=== PATIENT | male | born 1995 | race Caucasian/White ===

== ENCOUNTER 2016-10-06 12:29 | Emergency (ER) | payer OTHER ==
[~2016-10-06] VITALS: Ht 180.3 cm; Wt 104.3 kg
[2016-10-06] MEDS ORDERED: IV NORMAL SALINE 1,000ML 1,000 ML IV SCH (12:44)
--- NOTE | 2016-10-06 13:13 | EKG ---
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
[2016-10-06] MEDS ORDERED: ONDANSETRON PF 4 MG/2 ML VIAL. IV ONE (13:15)
[2016-10-06 13:23] LABS: BASO # 0.1 x10^3/uL (0.0-0.2); BASO % 1 % (0-3); EOS # 0.1 x10^3/uL (0.0-0.7); EOS % 1 % (0-3); HEMATOCRIT 40.4 % (39.0-53.0); HEMOGLOBIN 13.5 g/dL (13.0-17.5); LYMPH # 1.3 x10^3/uL (1.0-4.8); LYMPH % 11 % (24-48); MEAN CORPUSCULAR HEMOGLOBIN 29 pg (25-35); MEAN CORPUSCULAR HGB CONC 33 g/dL (31-37); MEAN CORPUSCULAR VOLUME 88 fL (79-100); MONO # 0.9 x10^3/uL (0.0-1.1); MONO % 7 % (0-9); NEUT # 9.5 x10^3uL (1.8-7.7); NEUT % 81 % (31-73); PLATELET COUNT 169 x10^3/uL (140-400); RED BLOOD COUNT 4.61 x10^6/uL (4.30-5.70); RED CELL DISTRIBUTION WIDTH 12.6 % (11.5-14.5); WHITE BLOOD COUNT 11.8 x10^3/uL (4.0-11.0)
--- NOTE | 2016-10-06 13:26 | RAD ---
Portable chest, 10/06/2016: History: Syncope The heart size and pulmonary vascularity are normal. No pulmonary infiltrates are seen. There is no evidence of pleural fluid. IMPRESSION: No acute cardiopulmonary abnormality is detected.
[2016-10-06 13:34] LABS: ALBUMIN 4.4 g/dL (3.4-5.0); ALBUMIN/GLOBULIN RATIO 1.4 (1.0-1.7); CREATININE 1.2 mg/dL (0.7-1.3); GFR 77.2; POTASSIUM 3.8 mmol/L (3.5-5.1); TOTAL BILIRUBIN 0.5 mg/dL (0.2-1.0); TOTAL PROTEIN 7.5 g/dL (6.4-8.2)
[2016-10-06] MEDS ORDERED: IV NORMAL SALINE 1,000ML 1,000 ML IV ONE (14:00)
[2016-10-06] MEDS ORDERED: METOCLOPRAMIDE HCL 10 MG/2 ML VIAL. IV ONE (14:00)
--- NOTE | 2016-10-06 14:04 | PHYS DOC ---
General Chief Complaint: WEAKNESS/GENERALIZED Stated Complaint: WEAKNESS Time Seen by MD: 12:37 Source: patient Exam Limitations: no limitations Problems: History of Present Illness Initial Comments Pt is 21/M to ED via EMS for weakness. 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 Pt states he's had "flu symptoms" of n/v/d x past 24 hours. States he kept some tacos down last night, not feeling well at beginning of run. States that in middle of run had BM urge, had to stop run and go into [facility] for BM. Continued the run, another BM urge right before finishing the run. States he went back home and "collapsed" on the bed, his SO called 911. No mon/loc/cp/sob/focal weakness. No blood in emesis/stool. Timing/Duration: 24 hours Severity: severe Modifying Factors: worse with movement, improves with rest Associated Symptoms: diaphoresis, fever/chills, loss of appetite, malaise, nausea/vomiting, weakness Allergies: Coded Allergies: No Known Drug Allergies (Unverified , 09/11/16) Past Medical History Medical History: no pertinent history Surgical History: noncontributory Social History Smoker: non-smoker Alcohol: none Drugs: none Review of Systems Constitutional: chills diaphoresis fever malaise Respiratory: denies cough, denies shortness of breath, denies wheezing Cardiovascular: denies chest pain, denies palpitations, denies syncope Gastrointestinal: abdominal pain diarrhea nausea vomiting Genitourinary: denies dysuria, denies frequency, denies hematuria Musculoskeletal: denies back pain, denies joint swelling, denies neck pain Psychiatric/Neurological: denies headache, denies numbness, denies paresthesia , denies weakness Hematologic/Lymphatic: denies blood clots, denies easy bleeding, denies easy bruising Physical Exam General Appearance: WD/WN, no apparent distress Eyes: bilateral eye EOMI, bilateral eye PERRL, bilateral eye normal inspection Ear, Nose, Throat: hearing grossly normal, normal ENT inspection (dry membranes ), normal pharynx Neck: non-tender, full range of motion, supple Respiratory: normal breath sounds, no respiratory distress Cardiovascular: normal peripheral pulses, regular rate, rhythm Gastrointestinal: normal bowel sounds, non tender, soft Rectal: deferred Back: normal inspection, no CVA tenderness, no vertebral tenderness Extremities: non-tender, normal inspection 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 Reassuring workup, pt feeling better with fluids. Advised d/c smoking, expressed agreement/understanding with treatment plan. Departure Time of Disposition: 15:53 Disposition: 01 HOME, SELF-CARE Diagnosis: hypovolemia, gastroenteritis Condition: IMPROVED Patient Instructions: Dehydration, Adult, Itbd-uh-Ekut, Viral Gastroenteritis, Mark-[id number]-[id number] Additional Instructions: Rest, off work today/tomorrow. Aggressive hydration with gatorade, water. Follow up with your PCM Thursday or for recheck. Return to ED with new or changing symptoms. BESS CASH DO Oct 06, 2016 14:04
[2016-10-06 14:59] LABS: AMPHETAMINE/METHAMPHETAMINE NEG (NEG); BARBITURATES NEG (NEG); BENZODIAZEPINES NEG (NEG); CANNABINOIDS NEG (NEG); COCAINE NEG (NEG); METHADONE NEG (NEG); OPIATES NEG (NEG); PHENCYCLIDINE NEG (NEG)
[2016-10-06 15:35] LABS: BILIRUBIN,URINE NEG (NEG); CLARITY,URINE CLEAR; COLOR,URINE YELLOW; GLUCOSE,URINE NEG (NEG)
[2016-10-06 15:36] LABS: BACTERIA,URINE 0 /HPF (0-FEW); NITRITE,URINE NEG (NEG); RBC,URINE 0 /HPF (0-2); UROBILINOGEN,URINE 0.2 mg/dL (0.2 mg/dL); WBC,URINE 0 /HPF (0-4)
[2016-10-06 16:20] VITALS: BP 107/56
== END 2016-10-06 16:23 | disposition home or self-care (01) ==
LOC: ER 12:29
DX: K52.9 Noninfective gastroenteritis and colitis, unspecified (principal); E86.1 Hypovolemia
CPT/HCPCS: 36415; 71010; 80053; 80305; 81001; 82550; 84484; 85027; 93005; 96361; 96374; 96375; 99285; J2405; J2765; G0481; J7030

== ENCOUNTER 2017-01-23 16:03 | Emergency (ER) | payer OTHER ==
[~2017-01-23] VITALS: Ht 180.3 cm; Wt 104.3 kg
[2017-01-23] MEDS ORDERED: IV NORMAL SALINE 1,000ML 1,000 ML IV ONE (16:30)
--- NOTE | 2017-01-23 16:32 | PHYS DOC ---
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 Denies any headache blurred vision chest pain or shortness of breath or abdominal pain nausea or vomiting. he has been working out in the heat most of the day. Review of Systems Review of Systems Constitutional: Denies fever or chills [] Eyes: Denies change in visual acuity, redness, or eye pain [] HENT: Denies nasal congestion or sore throat [] Respiratory: Denies cough or shortness of breath [] Cardiovascular: No additional information not addressed in HPI [] GI: Denies abdominal pain, nausea, vomiting, bloody stools or diarrhea [] : Denies dysuria or hematuria [] Musculoskeletal: Denies back pain or joint pain [] Integument: Denies rash or skin lesions [] Neurologic: Denies headache, focal weakness or sensory changes [] Endocrine: Denies polyuria or polydipsia [ All review systems negative except as mentioned in history present illness] Current Medications Current Medications Current Medications Medications (Trade) Dose Ordered Sig/Kevin Start Time Stop Time Status Last Admin Dose Admin Sodium Chloride 1,000 ml @ 1,000 mls/hr 1X ONCE 01/23/17 16:30 01/23/17 17:29 Allergies Allergies Allergies Coded Allergies Type Severity Reaction Last Updated Verified No Known Drug Allergies 09/11/16 No Physical Exam Physical Exam Constitutional: Well developed, well nourished, no acute distress, non-toxic appearance. [] HENT: Normocephalic, atraumatic, bilateral external ears normal, oropharynx moist, no oral exudates, nose normal. [] Eyes: PERRLA, EOMI, conjunctiva normal, no discharge. [] Neck: Normal range of motion, no tenderness, supple, no stridor. [] Cardiovascular:Heart rate regular rhythm, no murmur [] Lungs & Thorax: Bilateral breath sounds clear to auscultation [] Abdomen: Bowel sounds normal, soft, no tenderness, no masses, no pulsatile masses. [] Skin: Warm, dry, no erythema, no rash. [] Back: No tenderness, no CVA tenderness. [] Extremities: No tenderness, no cyanosis, no clubbing, ROM intact, no edema. [] Neurologic: Alert and oriented X 3, normal motor function, normal sensory function, no focal deficits noted. [] Psychologic: Affect normal, judgement normal, mood normal. [] EKG EKG EKG normal sinus rhythm rate of 70 no STEMI no ischemic changes by interpretation at 1632 [] Radiology/Procedures Radiology/Procedures [] Course & Med Decision Making Course & Med Decision Making Pertinent Labs and Imaging studies reviewed. (See chart for details) Plan will be IV fluids check an i-STAT and EKG. Likely heat exhaustion or dehydration I-STAT was unremarkable. 1733 exam: Feeling improved; fluid still infusing. RECOMMENDED that he stay out of the heat for the weekend [] Dragon Disclaimer Dragon Disclaimer This chart was dictated in whole or in part using Voice Recognition software in a busy, high-work load, and often noisy Emergency Department environment. It may contain unintended and wholly unrecognized errors or omissions. Departure Departure: Impression: Primary Impression: Heat exhaustion Additional Impression: Dehydration Disposition: HOME, SELF-CARE Condition: IMPROVED Referrals: EDITA TEJEDA (PCP) Patient Instructions: Dehydration, Adult, Byic-vx-Dssu, Heat Disorders-Brief Additional Instructions: Follow up with PCP on Thursday if not improving. Problem Qualifiers JOSÉ LUIS SOMMER MD Jan 23, 2017 16:32
--- NOTE | 2017-01-23 17:02 | EKG ---
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 RI6.01 Unconfirmed report Compared to ECG 10/06/2016 13:12:51 Electronically Signed On 01-26-2017 10:45:12 CDT by Anthony Brown
[2017-01-23 17:08] LABS: HEMOGLOBIN ISTAT 13.3 gm/dL; POTASSIUM ISTAT 3.8 mmol/L (3.5-5.0)
[2017-01-23 19:00] VITALS: BP 120/66
== END 2017-01-23 19:00 | disposition home or self-care (01) ==
LOC: ER 16:03
DX: T67.5XXA Heat exhaustion, unspecified, initial encounter (principal); E86.0 Dehydration; X30.XXXA Exposure to excessive natural heat, initial encounter; Y93.89 Activity, other specified; Y99.8 Other external cause status; Y92.89 Other specified places as the place of occurrence of the external cause
CPT/HCPCS: 80047; 93005; 99284-25

== ENCOUNTER 2017-02-28 21:56 | Emergency (ER) | payer OTHER ==
[~2017-02-28] VITALS: Ht 180.3 cm; Wt 104.3 kg
[2017-02-28 22:47] LABS: BASO # 0.2 x10^3/uL (0.0-0.2); BASO % 2 % (0-3); EOS # 0.4 x10^3/uL (0.0-0.7); EOS % 4 % (0-3); HEMATOCRIT 38.7 % (39.0-53.0); HEMOGLOBIN 13.1 g/dL (13.0-17.5); LYMPH # 1.6 x10^3/uL (1.0-4.8); LYMPH % 19 % (24-48); MEAN CORPUSCULAR HEMOGLOBIN 29 pg (25-35); MEAN CORPUSCULAR HGB CONC 34 g/dL (31-37); MEAN CORPUSCULAR VOLUME 87 fL (79-100); MONO # 1.1 x10^3/uL (0.0-1.1); MONO % 13 % (0-9); NEUT # 5.2 x10^3uL (1.8-7.7); NEUT % 62 % (31-73); PLATELET COUNT 166 x10^3/uL (140-400); RED BLOOD COUNT 4.45 x10^6/uL (4.30-5.70); RED CELL DISTRIBUTION WIDTH 13.1 % (11.5-14.5); WHITE BLOOD COUNT 8.4 x10^3/uL (4.0-11.0)
[2017-02-28 23:00] LABS: ALBUMIN 3.9 g/dL (3.4-5.0); ALBUMIN/GLOBULIN RATIO 1.1 (1.0-1.7); CALCIUM 8.6 mg/dL (8.5-10.1); CREATININE 0.8 mg/dL (0.7-1.3); GFR 123.2; POTASSIUM 3.6 mmol/L (3.5-5.1); TOTAL BILIRUBIN 0.3 mg/dL (0.2-1.0); TOTAL PROTEIN 7.3 g/dL (6.4-8.2)
[2017-02-28] MEDS: IV NORMAL SALINE 1,000ML 1,000 ML IV ONE (23:00)
[2017-02-28] MEDS ORDERED: IV NORMAL SALINE 1,000ML 1,000 ML IV ONE (23:00)
--- NOTE | 2017-02-28 23:42 | PHYS DOC ---
Past History Past Medical History: Anxiety, Depression Past Surgical History: Tonsillectomy Smoking: Non-smoker Alcohol Use: None Drug Use: None Adult General Chief Complaint Chief Complaint: HEAT EXPOSURE HPI HPI Patient is a 22-year-old gentleman who presents here today secondary to generalized malaise weakness. Patient reports that he's been outdoors either in the field or at a wedding since Thursday. Patient has no past medical history. Patient has no history of liver longer kidney problems. Patient has any history of hypertension or diabetes. No tobacco alcohol or drugs. Patient is complaining of a cough has been going on for the last couple days. Patient reports he had decreased liquid intake and feels like he is dehydrated and has not been keeping up with hydration. Patient has a nausea vomiting or diarrhea. Patient denies any double vision or blurred vision. Patient has any neck stiffness. Patient has any headache. Patient reports she does have a occasional yellowish productive cough. Patient has any chest pain or shortness of breath. Patient has any abdominal pain. Patient has a lower some edema. Patient's physical exam is unremarkable. Patient's alert awake oriented 3. Cranial nerves 2 to 12 intact. Motor is 5 out of 5. Sensory is intact. Patient has no nuchal rigidity. Patient has no Kernig's or Buczynski sign. Patient is no evidence of be consistent with meningitis. Patient's heart was regular rate and rhythm. Lungs were clear. Abdomen was soft nontender no rebound or guarding. Constitutional: Denies fever or chills [] Eyes: Denies change in visual acuity, redness, or eye pain [] HENT: Denies nasal congestion or sore throat [] All other review systems are negative except as documented in the history of present illness portion. Constitutional: Well developed, well nourished, no acute distress, non-toxic appearance. [] HENT: Normocephalic, atraumatic, bilateral external ears normal, oropharynx moist, no oral exudates, nose normal. [] Eyes: PERRLA, EOMI, conjunctiva normal, no discharge. [] Neck: Normal range of motion, no tenderness, supple, no stridor. [] Cardiovascular:Heart rate regular rhythm, Lungs & Thorax: Bilateral breath sounds clear to auscultation [] Abdomen: Bowel sounds normal, soft, no tenderness, no masses, no pulsatile masses. [] Skin: Warm, dry, no erythema, no rash. [] Back: No tenderness, no CVA tenderness. [] Extremities: No tenderness, no cyanosis, no clubbing, ROM intact, no edema. [] Neurologic: Alert and oriented X 3, normal motor function, normal sensory function, no focal deficits noted. [] Psychologic: Affect normal, judgement normal, mood normal. [] Patient's chest x-ray revealed normal heart size no infiltrates or effusions. Assessment and plan this is a 21-year-old gentleman who presents here today with likely acute exhaust. Patient be given 2 L of IV fluids here patient's CBC chemistry are all within normal limits. Patient's chest x-ray is normal. Patient be discharged home in stable condition. Patient feels much improved. Current Medications Current Medications Current Medications Medications (Trade) Dose Ordered Sig/Kevin Start Time Stop Time Status Last Admin Dose Admin Sodium Chloride 1,000 ml @ 1,000 mls/hr 1X ONCE 02/28/17 23:00 02/28/17 23:59 Allergies Allergies Allergies Coded Allergies Type Severity Reaction Last Updated Verified No Known Drug Allergies 09/11/16 No Current Patient Data Lab Results Laboratory Tests Test 02/28/17 22:20 White Blood Count 8.4 x10^3/uL (4.0-11.0) Red Blood Count 4.45 x10^6/uL (4.30-5.70) Hemoglobin 13.1 g/dL (13.0-17.5) Hematocrit 38.7 % (39.0-53.0) L Mean Corpuscular Volume 87 fL (79-100) Mean Corpuscular Hemoglobin 29 pg (25-35) Mean Corpuscular Hemoglobin Concent 34 g/dL (31-37) Red Cell Distribution Width 13.1 % (11.5-14.5) Platelet Count 166 x10^3/uL (140-400) Neutrophils (%) (Auto) 62 % (31-73) Lymphocytes (%) (Auto) 19 % (24-48) L Monocytes (%) (Auto) 13 % (0-9) H Eosinophils (%) (Auto) 4 % (0-3) H Basophils (%) (Auto) 2 % (0-3) Neutrophils # (Auto) 5.2 x10^3uL (1.8-7.7) Lymphocytes # (Auto) 1.6 x10^3/uL (1.0-4.8) Monocytes # (Auto) 1.1 x10^3/uL (0.0-1.1) Eosinophils # (Auto) 0.4 x10^3/uL (0.0-0.7) Basophils # (Auto) 0.2 x10^3/uL (0.0-0.2) Sodium Level 141 mmol/L (136-145) Potassium Level 3.6 mmol/L (3.5-5.1) Chloride Level 104 mmol/L (98-107) Carbon Dioxide Level 27 mmol/L (21-32) Anion Gap 10 (6-14) Blood Urea Nitrogen 13 mg/dL (8-26) Creatinine 0.8 mg/dL (0.7-1.3) Estimated GFR (Cockcroft-Gault) 123.2 BUN/Creatinine Ratio 16 (6-20) Glucose Level 86 mg/dL (70-99) Calcium Level 8.6 mg/dL (8.5-10.1) Total Bilirubin 0.3 mg/dL (0.2-1.0) Aspartate Amino Transferase (AST) 23 U/L (15-37) Alanine Aminotransferase (ALT) 30 U/L (16-63) Alkaline Phosphatase 85 U/L (46-116) Total Protein 7.3 g/dL (6.4-8.2) Albumin 3.9 g/dL (3.4-5.0) Albumin/Globulin Ratio 1.1 (1.0-1.7) EKG EKG [] Radiology/Procedures Radiology/Procedures [] Course & Med Decision Making Course & Med Decision Making Pertinent Labs and Imaging studies reviewed. (See chart for details) [] Dragon Disclaimer Dragon Disclaimer This chart was dictated in whole or in part using Voice Recognition software in a busy, high-work load, and often noisy Emergency Department environment. It may contain unintended and wholly unrecognized errors or omissions. Departure Departure: Impression: Primary Impression: Heat exhaustion Additional Impression: Dehydration Disposition: HOME, SELF-CARE Condition: IMPROVED Referrals: EDITA TEJEDA (PCP) Patient Instructions: Dehydration, Adult, Heat Disorders Problem Qualifiers CARA SULLIVAN MD Feb 28, 2017 23:42
[2017-02-28 23:55] VITALS: BP 123/123
--- NOTE | 2017-03-01 08:33 | RAD ---
Indication cough weakness and shortness of air. Frontal and lateral views of the chest were obtained and are compared to an examination 10/06/2016. The heart and pulmonary vessels appear normal. The mediastinum appears normal. The lungs are clear. IMPRESSION: No acute finding in the chest
== END 2017-03-01 00:41 | disposition home or self-care (01) ==
LOC: ER 21:56
DX: T67.5XXA Heat exhaustion, unspecified, initial encounter (principal); E86.0 Dehydration; F41.9 Anxiety disorder, unspecified; X58.XXXA Exposure to other specified factors, initial encounter; Y93.89 Activity, other specified; Y99.8 Other external cause status; Y92.89 Other specified places as the place of occurrence of the external cause
CPT/HCPCS: 36415; 71020; 80053; 85027; 96360; 96361; 99285-25; J7030

== ENCOUNTER 2017-03-14 22:53 | Emergency (ER) | payer OTHER ==
[~2017-03-14] VITALS: Ht 180.3 cm; Wt 104.3 kg
--- NOTE | 2017-03-14 23:08 | PHYS DOC ---
Past History Past Medical History: Anxiety, Depression Past Surgical History: Tonsillectomy Smoking: Non-smoker Alcohol Use: None Drug Use: None Adult General Chief Complaint Chief Complaint: GROIN PAIN HPI HPI Patient is a 21 year old M who presents with testicular pain. Patient states he was sitting down for dinner and developed severe right testicular pain that doubled him over in pain. Patient denies any trauma. Patient denies any dysuria. Patient states he can barely walk secondary to the severe testicular pain. Patient denied any flank pain or any history of kidney stones. Patient denies any chest pain or shortness of breath. Patient denies any fevers. Review of Systems Review of Systems GEN: Denies fevers, chills, sweats HEENT: Denies blurred vision, sore throat CV: Denies chest pain RESP: Denies shortness of air, cough GI: Denies n/v/d : Right testicular pain NEURO: Denies confusion, dizziness MSK: Denies weakness, joint pain/swelling Allergies Allergies Allergies Coded Allergies Type Severity Reaction Last Updated Verified No Known Drug Allergies 09/11/16 No Physical Exam Physical Exam GEN.: Moderate distress. Alert and oriented. HEENT: Head is normocephalic, atraumatic NECK: Supple. LUNGS: CTAB. HEART: RRR, S1, S2 present. Peripheral pulses intact ABDOMEN: Soft, nontender. Positive bowel sounds. : Severe pain to palpation to the right testicle, pain somewhat relieved with elevation of the right testicle, testicles not in the horizontal lie, no tenderness to palpation to left testicle, patient is circumcised EXTREMITIES: Without any cyanosis. NEUROLOGIC: Normal speech, normal tone PSYCHIATRIC: Normal affect, normal mood. SKIN: No ulcerations EKG EKG [] Radiology/Procedures Radiology/Procedures Ultrasound scrotum: IMPRESSION: 1. Vascular flow is identified to the bilateral testicles.[] Course & Med Decision Making Course & Med Decision Making Pertinent Labs and Imaging studies reviewed. (See chart for details) ED course: Patient was seen and examined upon arrival to emergency room CBC, CMP, UA, ultrasound the scrotum was ordered along with 1 mg Dilaudid 0030: Patient was reevaluated after ultrasound still having excruciating right testicular pain, will order another milligram Dilaudid 0058: On reexamination after 2 mg of Dilaudid had been administered the patient is still having significant right testicular pain 0108: Discussed CC/HP/PMH with Transfer center and will call back [] 0115: Discussed CC/HP/PMH with Dr. Frankel and recommends transfer and admit to urology service and keep the patient nothing by mouth 0125: Discussed plan with and patient to transfer to [] Dragon Disclaimer Dragon Disclaimer This chart was dictated in whole or in part using Voice Recognition software in a busy, high-work load, and often noisy Emergency Department environment. It may contain unintended and wholly unrecognized errors or omissions. Departure Departure: Impression: Primary Impression: Testicular torsion Disposition: 02 XFER SHT-TRM HOSP (Dr. Frankel ([facility])) Condition: STABLE Referrals: EDITA TEJEDA (PCP) LALITHA SIFUENTES DO Mar 14, 2017 23:08
[2017-03-14] MEDS ORDERED: IV NORMAL SALINE 1,000ML 1,000 ML IV ONE (23:15)
[2017-03-14] MEDS ORDERED: HYDROmorphone PF 1 MG/ML DISP.SYRIN IV ONE (23:30)
[2017-03-14] MEDS ORDERED: ONDANSETRON PF 4 MG/2 ML VIAL. IV ONE (23:30)
[2017-03-14 23:39] LABS: BASO # 0.1 x10^3/uL (0.0-0.2); BASO % 1 % (0-3); EOS # 0.5 x10^3/uL (0.0-0.7); EOS % 5 % (0-3); HEMATOCRIT 41.3 % (39.0-53.0); HEMOGLOBIN 14.4 g/dL (13.0-17.5); LYMPH # 2.6 x10^3/uL (1.0-4.8); LYMPH % 28 % (24-48); MEAN CORPUSCULAR HEMOGLOBIN 30 pg (25-35); MEAN CORPUSCULAR HGB CONC 35 g/dL (31-37); MEAN CORPUSCULAR VOLUME 86 fL (79-100); MONO % 11 % (0-9); NEUT # 5.2 x10^3uL (1.8-7.7); NEUT % 56 % (31-73); PLATELET COUNT 180 x10^3/uL (140-400); RED BLOOD COUNT 4.82 x10^6/uL (4.30-5.70); WHITE BLOOD COUNT 9.3 x10^3/uL (4.0-11.0)
[2017-03-14 23:53] LABS: ALBUMIN 4.3 g/dL (3.4-5.0); ALBUMIN/GLOBULIN RATIO 1.2 (1.0-1.7); CALCIUM 8.8 mg/dL (8.5-10.1); GFR 95.3; POTASSIUM 3.7 mmol/L (3.5-5.1); TOTAL BILIRUBIN 0.3 mg/dL (0.2-1.0); TOTAL PROTEIN 7.9 g/dL (6.4-8.2)
[2017-03-15] MEDS ORDERED: IV NORMAL SALINE 1,000ML 1,000 ML IV ONE (00:30)
--- NOTE | 2017-03-15 00:42 | RAD ---
INDICATION: Testicular pain. COMPARISON: None. TECHNIQUE: Grayscale, color and spectral doppler ultrasound images obtained of the scrotum. FINDINGS: Right Testicle: 41 x 32 x 24 mm. Vascular flow is identified. Left Testicle: 42 x 32 x 24 mm. Vascular flow is identified. Small hydrocele. IMPRESSION: 1. Vascular flow is identified to the bilateral testicles. Electronically signed by: Danilo Demarco MD (03/15/2017 12:39 AM) [facility]
[2017-03-15 00:57] LABS: BILIRUBIN,URINE NEG (NEG); CLARITY,URINE CLEAR; COLOR,URINE YELLOW; GLUCOSE,URINE NEG (NEG); NITRITE,URINE NEG (NEG); RBC,URINE OCC /HPF (0-2); UROBILINOGEN,URINE 0.2 mg/dL (0.2 mg/dL); WBC,URINE OCC /HPF (0-4)
[2017-03-15 00:58] LABS: BACTERIA,URINE 0 /HPF (0-FEW); SQUAMOUS EPITHELIAL CELL,UR OCC /LPF
[2017-03-15] MEDS ORDERED: HYDROmorphone PF 1 MG/ML DISP.SYRIN IV ONE (01:00)
[2017-03-15] MEDS ORDERED: fentaNYL PF 100 MCG/2 ML VIAL IV ONE (01:15)
[2017-03-15 01:48] VITALS: BP 142/69
== END 2017-03-15 01:57 | disposition short-term general hospital (02) ==
LOC: ER 22:53
DX: N44.00 Torsion of testis, unspecified (principal)
CPT/HCPCS: 36415; 76870; 80053; 81001; 85027; 96361; 96374; 96375; 96376; 99285; J1170; J2405; J3010; J7030

== ENCOUNTER 2017-03-26 16:56 | Emergency (ER) | payer OTHER ==
[~2017-03-26] VITALS: Ht 180.3 cm; Wt 108.9 kg
--- NOTE | 2017-03-26 17:40 | PHYS DOC ---
Past History Past Medical History: Anxiety, Depression Additional Past Medical Histor: chronic right groin and testicular pain. Past Surgical History: Tonsillectomy Smoking: Non-smoker Alcohol Use: None Drug Use: None Adult General Chief Complaint Chief Complaint: GROIN PAIN [facility] HPI Patient is a pleasant 21-year-old male with a history of chronic testicular pain /right groin pain since March 2016. Patient's right groin pain began spontaneously he's been seen by multiple urologists, he's been seen by [facility] and had blood work, ultrasounds, even at testicular block done to help previous pains. 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 He has normal oral medications treat his symptoms at home. Although he does not recall which medications are. Again he has no dysuria, no abdominal pain no new symptoms today as any fevers, chills, or night sweats or new trauma to his groin. He is not showing any workup only some symptomatic treatment if they're willing and a note for his work. Review of Systems Review of Systems Constitutional: Denies fever or chills [] Eyes: Denies change in visual acuity, redness, or eye pain [] HENT: Denies nasal congestion or sore throat [] Respiratory: Denies cough or shortness of breath [] Cardiovascular: No additional information not addressed in HPI [] GI: Denies abdominal pain, nausea, vomiting, bloody stools or diarrhea [] : Denies dysuria or hematuria [] Musculoskeletal: Denies back pain or joint pain [] Integument: Denies rash or skin lesions [] Neurologic: Denies headache, focal weakness or sensory changes [] Endocrine: Denies polyuria or polydipsia [] Allergies Allergies Allergies Coded Allergies Type Severity Reaction Last Updated Verified No Known Drug Allergies 09/11/16 No Physical Exam Physical Exam Vital signs stable within normal limits according with record here in the chart. Constitutional: Well developed, well nourished, no acute distress, non-toxic appearance. [] Cardiovascular:Heart rate regular rhythm, no murmur [] Lungs & Thorax: Bilateral breath sounds clear to auscultation [] Abdomen: Bowel sounds normal, soft, no tenderness, no masses, no pulsatile masses exam demonstrates normal external male genitalia. Normal testicular lie. There is no tenderness to palpation in the testicle on the left or the right there is a normal chemistry reflux, normal capillary refill within the scrotum itself. The penis has no discharge he is uncircumcised and is easily retract the foreskin. There is no evidence of paraphimosis or phimosis. Patient has no tenderness along the inguinal crease other than 2 cm lateral over the pubis symphysis demonstrates no lymphadenopathy no evidence of pleural inflammation or tenderness on exam. [] Skin: Warm, dry, no erythema, no rash. [] Extremities: No tenderness, no cyanosis, no clubbing, ROM intact, no edema. [] Neurologic: Alert and oriented X 3, normal motor function, normal sensory function, no focal deficits noted. [] Psychologic: Affect normal, judgement normal, mood normal. [] EKG EKG [] Radiology/Procedures Radiology/Procedures [] Course & Med Decision Making Course & Med Decision Making Pertinent Labs and Imaging studies reviewed. (See chart for details) [facility] vital signs nursing notes and history and physical been reviewed. Patient with chronic groin pain since March 2016. 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 Based on his physical exam was groin there is no evidence of testicular torsion and even if he did have testicular torsion given his symptoms been going on since last March and patient had an ultrasound done we do not feel compelled to repeat his exam today. Impression: Chronic groin pain, chronic pain management. [] Dragon Disclaimer Dragon Disclaimer This chart was dictated in whole or in part using Voice Recognition software in a busy, high-work load, and often noisy Emergency Department environment. It may contain unintended and wholly unrecognized errors or omissions. Departure Departure: Impression: Primary Impression: Chronic pain Disposition: 01 HOME, SELF-CARE Condition: STABLE Referrals: EDITA TEJEDA (PCP) Patient Instructions: Chronic Pain, Chronic Pain Management Additional Instructions: Although even having the symptoms since March 2016 please return immediately for any new or increasing symptoms especially in the other testicle. Although there is no evidence of testicular torsion on physical exam today given your continued testicular pain and would advise a follow-up with urology to continue to evaluate the source of pain in your lower abdominal wall. Please return for any questions or concerns or might have KACI BROOKS MD Mar 26, 2017 17:40
[2017-03-26] MEDS ORDERED: KETOROLAC 60 MG/2 ML VIAL. IM ONE (17:45)
[2017-03-26 17:50] VITALS: BP 124/75
== END 2017-03-26 17:50 | disposition home or self-care (01) ==
LOC: ER 16:56
DX: G89.29 Other chronic pain (principal); N50.811 Right testicular pain; R10.31 Right lower quadrant pain
CPT/HCPCS: 96372; 99283; J1885

== ENCOUNTER 2017-04-11 09:38 | Emergency (ER) | payer OTHER ==
[2017-04-11] MEDS ORDERED: IV NORMAL SALINE 1,000ML 1,000 ML IV SCH (10:00)
[2017-04-11] MEDS ORDERED: ONDANSETRON PF 4 MG/2 ML VIAL. IV ONE ×2 (10:00→11:45)
[2017-04-11 10:15] LABS: BASO # 0.1 x10^3/uL (0.0-0.2); BASO % 1 % (0-3); EOS # 0.2 x10^3/uL (0.0-0.7); EOS % 3 % (0-3); HEMATOCRIT 41.3 % (39.0-53.0); HEMOGLOBIN 14.1 g/dL (13.0-17.5); LYMPH # 1.4 x10^3/uL (1.0-4.8); LYMPH % 22 % (24-48); MEAN CORPUSCULAR HEMOGLOBIN 29 pg (25-35); MEAN CORPUSCULAR HGB CONC 34 g/dL (31-37); MEAN CORPUSCULAR VOLUME 86 fL (79-100); MONO % 16 % (0-9); NEUT # 3.6 x10^3uL (1.8-7.7); NEUT % 58 % (31-73); PLATELET COUNT 154 x10^3/uL (140-400); RED BLOOD COUNT 4.82 x10^6/uL (4.30-5.70); RED CELL DISTRIBUTION WIDTH 13.6 % (11.5-14.5); WHITE BLOOD COUNT 6.2 x10^3/uL (4.0-11.0)
[2017-04-11 10:30] LABS: ALBUMIN 4.4 g/dL (3.4-5.0); ALBUMIN/GLOBULIN RATIO 1.3 (1.0-1.7); CALCIUM 8.9 mg/dL (8.5-10.1); GFR 95.3; TOTAL BILIRUBIN 0.8 mg/dL (0.2-1.0); TOTAL PROTEIN 7.8 g/dL (6.4-8.2)
[2017-04-11 11:38] LABS: BACTERIA,URINE 0 /HPF (0-FEW); BILIRUBIN,URINE NEG (NEG); CLARITY,URINE CLEAR; COLOR,URINE AMBER; GLUCOSE,URINE NEG (NEG); NITRITE,URINE NEG (NEG); RBC,URINE 0 /HPF (0-2); SQUAMOUS EPITHELIAL CELL,UR OCC /LPF; UROBILINOGEN,URINE 0.2 mg/dL (0.2 mg/dL); WBC,URINE 0 /HPF (0-4)
[2017-04-11] MEDS ORDERED: IV NORMAL SALINE 1,000ML 1,000 ML IV ONE (11:45)
[2017-04-11] MEDS ORDERED: ONDA4TAB12 PO (11:48)
--- NOTE | 2017-04-11 11:50 | PHYS DOC ---
Past History Past Medical History: Depression, Other Additional Past Medical Histor: chronic right groin and testicular pain. Past Surgical History: No Surgical History Smoking: Non-smoker Alcohol Use: None Drug Use: None Adult General Chief Complaint Chief Complaint: NAUSEA/VOMITING/DIARRHEA HPI HPI Patient is a 21-year-old male brought to the ED by his with a history of 2 days of nausea, vomiting, and some diarrhea. No blood in the vomit. Their son did have a viral gastroenteritis last week. The patient has a history of chronic back pain but otherwise healthy. Review of Systems Review of Systems Constitutional: Denies fever or chills [] GI: As in history of present illness Musculoskeletal: Chronic back pain issues and everything else Current Medications Current Medications Current Medications Medications (Trade) Dose Ordered Sig/Kevin Start Time Stop Time Status Last Admin Dose Admin Ondansetron HCl (Zofran) 4 mg 1X ONCE 04/11/17 11:45 04/11/17 11:46 Sodium Chloride 1,000 ml @ 1,000 mls/hr 1X ONCE 04/11/17 11:45 04/11/17 12:44 Allergies Allergies Allergies Coded Allergies Type Severity Reaction Last Updated Verified No Known Drug Allergies 09/11/16 No Physical Exam Physical Exam Constitutional: Well developed, well nourished, no acute distress, non-toxic appearance. Alert, ambulatory, warm and dry, mentating normally. HENT: Normocephalic, atraumatic, bilateral external ears normal, nose normal. [ ] Eyes: conjunctiva normal, no discharge. [] Neck: Normal range of motion, no stridor. [] Cardiovascular:Heart rate regular rhythm, no murmur , not tachycardia Lungs & Thorax: Bilateral breath sounds clear to auscultation [] Abdomen: Bowel sounds normal, soft, no tenderness, no masses, no pulsatile masses. Abdomen entirely benign. Skin: Warm, dry, no erythema, no rash. [] Extremities: No tenderness, no cyanosis, no clubbing, ROM intact, no edema. [] Neurologic: Alert and oriented X 3, normal motor function, normal sensory function, no focal deficits noted. [] Current Patient Data Vital Signs Vital Signs Date Time Temp Pulse Resp B/P (MAP) Pulse Ox O2 Delivery O2 Flow Rate FiO2 04/11/17 09:40 98.7 76 18 97 Room Air Lab Results Laboratory Tests Test 04/11/17 10:00 9/2/17 11:00 White Blood Count 6.2 x10^3/uL (4.0-11.0) Red Blood Count 4.82 x10^6/uL (4.30-5.70) Hemoglobin 14.1 g/dL (13.0-17.5) Hematocrit 41.3 % (39.0-53.0) Mean Corpuscular Volume 86 fL (79-100) Mean Corpuscular Hemoglobin 29 pg (25-35) Mean Corpuscular Hemoglobin Concent 34 g/dL (31-37) Red Cell Distribution Width 13.6 % (11.5-14.5) Platelet Count 154 x10^3/uL (140-400) Neutrophils (%) (Auto) 58 % (31-73) Lymphocytes (%) (Auto) 22 % (24-48) L Monocytes (%) (Auto) 16 % (0-9) H Eosinophils (%) (Auto) 3 % (0-3) Basophils (%) (Auto) 1 % (0-3) Neutrophils # (Auto) 3.6 x10^3uL (1.8-7.7) Lymphocytes # (Auto) 1.4 x10^3/uL (1.0-4.8) Monocytes # (Auto) 1.0 x10^3/uL (0.0-1.1) Eosinophils # (Auto) 0.2 x10^3/uL (0.0-0.7) Basophils # (Auto) 0.1 x10^3/uL (0.0-0.2) Sodium Level 140 mmol/L (136-145) Potassium Level 4.0 mmol/L (3.5-5.1) Chloride Level 105 mmol/L (98-107) Carbon Dioxide Level 26 mmol/L (21-32) Anion Gap 9 (6-14) Blood Urea Nitrogen 12 mg/dL (8-26) Creatinine 1.0 mg/dL (0.7-1.3) Estimated GFR (Cockcroft-Gault) 95.3 BUN/Creatinine Ratio 12 (6-20) Glucose Level 92 mg/dL (70-99) Calcium Level 8.9 mg/dL (8.5-10.1) Total Bilirubin 0.8 mg/dL (0.2-1.0) Aspartate Amino Transferase (AST) 22 U/L (15-37) Alanine Aminotransferase (ALT) 34 U/L (16-63) Alkaline Phosphatase 90 U/L (46-116) Total Protein 7.8 g/dL (6.4-8.2) Albumin 4.4 g/dL (3.4-5.0) Albumin/Globulin Ratio 1.3 (1.0-1.7) Lipase 233 U/L (73-393) Urine Collection Type Unknown Urine Color Wilda Urine Clarity Clear Urine pH 5.5 Urine Specific [place] 1.025 Urine Protein Neg (NEG-TRACE) Urine Glucose (UA) Neg mg/dL (NEG) Urine Ketones (Stick) Neg mg/dL (NEG) Urine Blood Neg (NEG) Urine Nitrite Neg (NEG) Urine Bilirubin Neg (NEG) Urine Urobilinogen Dipstick 0.2 mg/dL (0.2 mg/dL) Urine Leukocyte Esterase Neg (NEG) Urine RBC 0 /HPF (0-2) Urine WBC 0 /HPF (0-4) Urine Squamous Epithelial Cells Occ /LPF Urine Bacteria 0 /HPF (0-FEW) EKG EKG [] Radiology/Procedures Radiology/Procedures [] Course & Med Decision Making Course & Med Decision Making Pertinent Labs and Imaging studies reviewed. (See chart for details) Patient appeared stable in the ED. He had 2 L of IV fluids. Labs unremarkable. He was given a note to be off work today and tomorrow. See instructions for plan. [] Dragon Disclaimer Dragon Disclaimer This chart was dictated in whole or in part using Voice Recognition software in a busy, high-work load, and often noisy Emergency Department environment. It may contain unintended and wholly unrecognized errors or omissions. Departure Departure: Impression: Primary Impression: Viral gastroenteritis Disposition: 01 HOME, SELF-CARE Condition: IMPROVED Referrals: PHYLLIS MACKAY MD (PCP) Patient Instructions: Viral Gastroenteritis, Wsow-[id number] Additional Instructions: As we discussed, your symptoms are most likely caused by a virus, "the stomach flu". You need to rest and practice good hand washing with soap and water until better. I have prescribed ondansetron for nausea and vomiting, use as needed. You may also take [id number] Imodium if needed for diarrhea. Drink plenty of fluids such as Gatorade,G2, fruit juices, non-caffeinated soda. If not better in one to 2 days, see your doctor. Scripts Ondansetron (ONDANSETRON ODT) 4 Mg Tab.rapdis 1 TAB PO PRN Q6-8HRS for NAUSEA, #8 TAB Prov: TREVON HYMAN MD 04/11/17 TREVON HYMAN MD Apr 11, 2017 11:50
[2017-04-11 12:20] VITALS: BP 120/68
== END 2017-04-11 12:20 | disposition home or self-care (01) ==
LOC: ER 09:38
DX: A08.4 Viral intestinal infection, unspecified (principal); G89.29 Other chronic pain
CPT/HCPCS: 36415; 80053; 81001; 83690; 85025; 96361; 96374; 96376; 99284; J2405; J7030

== ENCOUNTER 2017-06-07 13:39 | Emergency (ER) | payer OTHER ==
[~2017-06-07] VITALS: Ht 180.3 cm; Wt 108.9 kg
[~2017-06-07 13:39] MED LIST: ONDA4TAB12 PO
[2017-06-07 13:52] VITALS: BP 140/83
[2017-06-07 14:30] LABS: INFLUENZA A PATIENT NEGATIVE (NEGATIVE); INFLUENZA B PATIENT NEGATIVE (NEGATIVE)
[2017-06-07] MEDS ORDERED: GUAI600T47 PO (15:32)
[2017-06-07] MEDS ORDERED: AZIT250T PO (15:32)
--- NOTE | 2017-06-07 15:34 | PHYS DOC ---
General Chief Complaint: FLU SYMPTOM Stated Complaint: FLU LIKE SYMPTOMS Time Seen by MD: 13:43 Source: patient Exam Limitations: no limitations Problems: History of Present Illness Initial Comments Patient is a 21-year-old male who comes to the ED complaining of cough. Patient states that for the past several days he's had worsening frontal and maxillary sinus pressure worse with forward bending, he's had green/yellow nasal discharge and cough with scratchy throat. He's had ear pressure and chills no measured fevers, throat is just described as scratchy he's been eating and drinking well and has no swollen lymph nodes. No nausea vomiting or diarrhea. Denies history of mononucleosis. Has not missed any work from this illness. RN initiated influenza testing upon patient arrival due to high patient volume. ED vital signs stable Timing/Duration: gradual, last week Severity: moderate Location: nose, throat, facial Prearrival Treatment: over the counter meds Modifying Factors: improves with other Associated Symptoms: cough, facial pain/swelling, malaise, nasal congestion/ drainage, sore throat Allergies: Coded Allergies: No Known Drug Allergies (Unverified , 09/11/16) Past Medical History Medical History: other (depression) Surgical History: noncontributory Social History Smoker: cigarettes, less than 1 pack/day Alcohol: none Drugs: none Constitutional: denies chills, denies diaphoresis, denies fever Ears: see HPI, denies dizziness Nose: see HPI, congestion Throat: see HPI Respiratory: see HPI Cardiovascular: denies chest pain, denies palpitations Gastrointestinal: see HPI Musculoskeletal: denies back pain, denies joint swelling, denies neck pain Physical Exam General Appearance: WD/WN, no apparent distress Eyes: bilateral eye normal inspection, bilateral eye PERRL, bilateral eye EOMI Ears: right ear foreign body (cerumen visualized TM is normal), bilateral ear auricle normal, bilateral ear TM normal (left TM with serous fluid no erythema) Nose: sinus tenderness Mouth/Throat: normal mouth inspection, pharynx normal (mild left pharyngeal erythema no swelling yellow nasal discharge and postnasal drip) Neck: non-tender, full range of motion, supple (no lymphadenopathy), trachea midline Cardiovascular/Respiratory: regular rate, rhythm, normal peripheral pulses, normal breath sounds, no respiratory distress Neurologic/Psychiatric: voice over announcer II-XII nml as tested, no motor/sensory deficits, alert, normal mood/affect, oriented x 3 Skin: normal color, warm/dry Orders, Labs, Meds Influenza A and B- I discussed jhzu-luv-aquajjn and prescription medications as well as time off from work. I discussed need to stop smoking. Signs and symptoms to monitor as well as indications for urgent return to the department or discussed the patient 's questions were answered to his satisfaction. He expressed agreement and understanding with treatment plan. Departure Time of Disposition: 15:32 Disposition: HOME, SELF-CARE Diagnosis: pharyngitis, left serous otitis, tobaccoism Condition: GOOD Patient Instructions: Serous Otitis Media, Smoking Cessation, Tips For Success Additional Instructions: Off work through June 10, note given. Stop smoking seek medical assistance if necessary. Aggressive hydration with Gatorade and water. Must-ifb-vvvhbjo Tylenol, ibuprofen, and analgesic throat sprays as needed. Prescription: Zithromax, guaifenesin Follow-up with your doctor in 7-10 days for recheck. Return to ED with new or changing symptoms. BESS CASH DO Jun 07, 2017 15:34
== END 2017-06-07 15:40 | disposition home or self-care (01) ==
LOC: ER 13:39
DX: H65.92 Unspecified nonsuppurative otitis media, left ear (principal); J02.9 Acute pharyngitis, unspecified; F17.210 Nicotine dependence, cigarettes, uncomplicated; F32.9 Major depressive disorder, single episode, unspecified
CPT/HCPCS: 87804; 99284

== ENCOUNTER 2017-08-16 19:46 | Emergency (ER) | payer OTHER ==
[~2017-08-16] VITALS: Ht 180.3 cm; Wt 108.9 kg
[~2017-08-16 19:46] MED LIST changes: +AZIT250T PO; +GUAI600T47 PO
[2017-08-16 20:24] VITALS: BP 132/75
[2017-08-16] MEDS ORDERED: diphenhydrAMINE 50 MG/ML VIAL IVP ONE (21:00)
[2017-08-16] MEDS ORDERED: PROCHLORPERAZINE 10 MG/2 ML VIAL. IV ONE (21:00)
--- NOTE | 2017-08-16 21:33 | RAD ---
CT of the head without contrast History:Syncope. Woke up with a severe headache. Technique: Standard noncontrast images are obtained. Exposure: One or more of the following individualized dose reduction techniques were utilized for this examination: 1. Automated exposure control 2. Adjustment of the mA and/or kV according to patient size 3. Use of iterative reconstruction technique. Comparison: None Findings: Posterior fossa is unremarkable. Mild homogeneous low-density of the christi may just be due to artifact. No areas of asymmetric abnormal parenchymal density are seen. No evidence of acute intracranial hemorrhage, mass effect or midline shift. No abnormal extra-axial fluid collection. Gonzáles-white matter distinction is intact. Ventricles unremarkable and symmetric Visualized orbits are unremarkable. Visualized paranasal sinuses and mastoids are clear. No acute calvarial abnormality Impression: No acute intracranial hemorrhage or mass effect. Mild homogeneous low-density of the christi, could be be artifactual. However, if there is clinical concern for an acute ischemic event, MR brain could be of benefit for further evaluation. Electronically signed by: Cristi Gauthier MD (08/16/2017 9:30 PM) [facility]
[2017-08-16] MEDS ORDERED: CONTRAST GIVEN MC PRN (22:45)
--- NOTE | 2017-08-16 22:56 | EKG ---
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
[2017-08-16] MEDS ORDERED: IOHEXOL 300 MG/ML 50 ML VIAL. IV ONE ×2 (23:00)
--- NOTE | 2017-08-16 23:16 | PHYS DOC ---
Past History Past Medical History: No Pertinent History Additional Past Medical Histor: chronic right groin and testicular pain. Past Surgical History: No Surgical History Smoking: Non-smoker Alcohol Use: None Drug Use: None Adult General Chief Complaint Chief Complaint: ANXIETY/PANIC ATTACK HPI HPI Patient is a 21-year-old male who presents with complaints of headache that is different from previous. Per family patient may have had a brief moment of loss of consciousness a bee a few seconds after which the patient was awake but felt dizzy and lightheaded. There was no vomiting, no changes in vision, patient felt some pressure behind the eyes as well as some neck pain. No localized weakness, no sensation of vertigo or room spinning Review of Systems Review of Systems Constitutional: Denies fever or chills [] Eyes: Denies change in visual acuity, redness, or eye pain [] HENT: Mild neck pain bilateral Respiratory: Denies cough or shortness of breath [] Cardiovascular: No chest pain GI: Denies abdominal pain, nausea, vomiting, bloody stools or diarrhea [] : Denies dysuria or hematuria [] Musculoskeletal: Yes to bilateral upper back pain Integument: Denies rash or skin lesions [] Neurologic: Denies focal weakness or sensory changes. Yes to headache All other systems were reviewed and found to be within normal limits, except as documented in this note. Current Medications Current Medications Current Medications Medications (Trade) Dose Ordered Sig/Kevin Start Time Stop Time Status Last Admin Dose Admin Diphenhydramine HCl (Benadryl) 25 mg 1X ONCE 08/16/17 21:00 08/16/17 21:01 DC 08/16/17 21:13 25 MG Info (Do NOT chart on this entry -- for MONITORING) 1 each PRN DAILY PRN 08/16/17 22:45 08/18/17 22:44 Iohexol (Omnipaque 300 Mg/ml) 50 ml 1X ONCE 08/16/17 23:00 08/16/17 23:01 DC 08/16/17 22:58 50 ML Prochlorperazine Edisylate (Compazine) 10 mg 1X ONCE 08/16/17 21:00 08/16/17 21:01 DC 08/16/17 21:13 10 MG Allergies Allergies Allergies Coded Allergies Type Severity Reaction Last Updated Verified No Known Drug Allergies 08/16/17 No Physical Exam Physical Exam Constitutional: Well developed, well nourished, mild distress, non-toxic appearance. [] HENT: Normocephalic, atraumatic, bilateral external ears normal, oropharynx moist, no oral exudates, nose normal. [] Eyes: PERRLA, EOMI, conjunctiva normal, no discharge. [] Neck: Normal range of motion, no tenderness, supple, no stridor. No LAD, no meningeal signs Cardiovascular:Heart rate regular rhythm, no murmur him equal pulses, normal perfusion Lungs & Thorax: Bilateral breath sounds clear to auscultation, no tachypnea Abdomen: Bowel sounds normal, soft, no tenderness, no masses, no pulsatile masses. [] Skin: Warm, dry, no erythema, no rash. [] Back: Mild upper back tenderness bilaterally, no CVA tenderness. No midline tenderness, no step-offs Extremities: No tenderness, no cyanosis, no clubbing, ROM intact, no edema. [] Neurologic: Alert and oriented X 3, normal motor function, normal gross sensory function, strength is equal and symmetric throughout, no focal deficits noted. No pronator drift. Ygvldh-po-kxbv within normal limits. Cranial nerves III-12 within normal limits Psychologic: Affect normal, judgement normal, mood normal. [] EKG EKG 2000 sinus rhythm, 71, no STEMI[] Radiology/Procedures Radiology/Procedures Impression: No acute intracranial hemorrhage or mass effect. Mild homogeneous low-density of the christi, could be be artifactual. However, if there is clinical concern for an acute ischemic event, MR brain could be of benefit for further evaluation.[] Course & Med Decision Making Course & Med Decision Making Pertinent Labs and Imaging studies reviewed. (See chart for details) 2240 CT scan results reviewed and discussed. Neurological exam at this time is unremarkable and patient feels much improved and requests discharge home. However, given the somewhat concerning history and the questionable finding on CT scan we will repeat CT scan with contrast to gain additional information. Once results of those results were relayed to sit situation and discussed with the patient and the family. Patient states he feels back to baseline and wishes to be discharged but will stay for the CT with contrast 0034 pt is completely back to baseline and without pain. Still no neurological deficits. pt declines MRI. I believe that the comment by radiology in non contrast CT is more consistent with the observation being an artifact given that the patient is mentating normally, is in no distress and has no neurological findings. pt and family comfortable with discharge home. strict return precautions have been discuss and pt agrees to follow up as directed. [] Dragon Disclaimer Dragon Disclaimer This electronic medical record was generated, in whole or in part, using a voice recognition dictation system. Departure Departure: Impression: Primary Impression: Headache Additional Impressions: Neck pain Anxiety Syncope Disposition: HOME, SELF-CARE Condition: IMPROVED Referrals: PHYLLIS MACKAY MD (PCP) Please follow with your doctor in 1 day for recheck and reevaluation, please discuss with this emergency department visit. Please discuss possible need for further outpatient tests Patient Instructions: Anxiety and Panic Attacks, General Headache Without Cause , Syncope Problem Qualifiers Soco DILLARD MD Aug 16, 2017 23:16
--- NOTE | 2017-08-17 00:15 | RAD ---
INDICATION: Syncope episode - woke up with severe headache on right side of head down right side of neck, blurred vision
Gave omni 300 100ml IV - tolerated well
Pt just had a CT Head without about an hour ago COMPARISON: Earlier same day TECHNIQUE: Axial CT images obtained through the head and neck arterial vasculature with intravenous contrast with three-dimensional images processed. Degree of carotid stenosis was estimated based on criteria that correlate with NASCET. One or more of the following individualized dose reduction techniques were utilized for this examination: 1. Automated exposure control; 2. Adjustment of the mA and/or kV according to patient size; 3. Use of iterative reconstruction technique. FINDINGS: Neck angiography: Vertebral arteries are patent. Common carotid arteries are patent. Proximal external carotid arteries are patent. Internal carotid arteries are patent. Brain angiography: Basilar artery is patent. Proximal middle, anterior and posterior cerebral arteries are patent. Other findings: Minimal mucosal thickening maxillary sinuses. Scattered mildly prominent lymph nodes within the neck with some of them appearing mildly enlarged. For example adjacent to right mandible measuring 12 mm short axis. There is some apparent odontogenic disease with periapical lucencies at teeth. IMPRESSION: No major arterial occlusion of the neck arterial vessels. No proximal occlusion of the major arterial vessels of the brain. If there is clinical concern for stroke MRI would be better to evaluate given that CT angiography is insensitive for the diagnosis of a more peripheral stroke. There are some prominent lymph nodes within the neck. Periapical lucencies at the teeth which can be seen with odontogenic disease. Mild stranding to the fat adjacent to the mandible and maxillary region. This is a subtle finding but would correlate with symptoms in the region to ensure that there is not inflammation from infectious causes. Electronically signed by: Danilo Demarco MD (08/17/2017 12:12 AM) [facility]
== END 2017-08-17 00:50 | disposition home or self-care (01) ==
LOC: ER 19:46
DX: R51 Headache (principal); M54.2 Cervicalgia; R55 Syncope and collapse; G89.29 Other chronic pain; F41.9 Anxiety disorder, unspecified
CPT/HCPCS: 70450; 70496; 70498; 93005; 96374; 96375; 99284; J0780; J1200; Q9967